=== PATIENT | male | born 1990 | race Caucasian/White ===

== ENCOUNTER 2021-03-25 12:17 | Emergency (ER) | payer SELFPAY ==
[2021-03-25 12:35] VITALS: BP 133/64; PULSE 65; TEMP 97.8; BMI 25.1
[2021-03-25] MEDS ORDERED: TETRACAINE 0.5% OPHTH SOLN 2 ML BOTTLE ONE (13:34)
[2021-03-25] MEDS ORDERED: FLUORESCEIN NA 1 EA STRIP ONE (13:34)
[2021-03-25] MEDS ORDERED: IBUPROFEN 400 MG TABLET (FP) PO ONE ×2 (14:03→14:19)
== END 2021-03-25 15:01 | disposition home or self-care (01) ==
LOC: JERFT 12:17
DX: T15.02XA Foreign body in cornea, left eye, initial encounter (principal)
CPT/HCPCS: 99283-25